=== PATIENT | female | born 2000 | race Hispanic/Latino ===

== ENCOUNTER 2018-01-04 12:03 | Emergency (ER) | payer BC ==
[2018-01-04 12:37] LABS: KETONE, URINE AUTO RFX NEGATIVE (NEGATIVE); LEUKOCYTE ESTERASE UR AUTO RFX NEGATIVE (NEGATIVE); MUCUS, URINE RFX SMALL (NEGATIVE); NITRITE, URINE AUTO RFX NEGATIVE (NEGATIVE); RBC, URINE AUTO RFX 0 /HPF (0-3); SPECIFIC GRAVITY UR AUTO RFX 1.015 (1.002-1.035); SQUAM EPITHELIAL CELL UR AURFX 0 /HPF (0-6); WBC, URINE AUTO RFX 0 /HPF (0-3)
[2018-01-04 14:20] LABS: BASO # 0.1 10^3/uL (0.0-0.2); BASO % 0.7 % (0.0-1.0); EOS # 0.2 10^3/uL (0.0-0.50); EOS % 1.6 % (0.0-3.0); HEMATOCRIT 42.6 % (36.0-47.0); HEMOGLOBIN 13.7 g/dl (12.0-15.5); IMMATURE GRANULOCYTE % 0.1 % (0-3.0); LYMPH # 2.5 10^3/uL (1.5-6.5); LYMPH % 25.4 % (24.0-44.0); MEAN CORPUSCULAR HEMOGLOBIN 26.1 pg (27.0-33.0); MEAN CORPUSCULAR HGB CONC 32.2 g/dl (32.0-36.5); MEAN CORPUSCULAR VOLUME 81.3 fl (80.0-96.0); MONO % 10.6 % (0.0-5.0); NEUTROPHILS % 61.6 % (36.0-66.0); PLATELET COUNT, AUTOMATED 371 10^3/uL (150-450); RED BLOOD COUNT 5.24 10^6/uL (4.00-5.40); RED CELL DISTRIBUTION WIDTH 13.8 % (11.5-14.5); WHITE BLOOD COUNT 9.8 10^3/uL (4.0-10.0)
[2018-01-04 14:41] LABS: ANION GAP 7 MEQ/L (8-16); BLOOD UREA NITROGEN 9 MG/DL (7-18); CALCIUM LEVEL 8.9 MG/DL (8.5-10.1); CARBON DIOXIDE LEVEL 24 MEQ/L (21-32); CHLORIDE LEVEL 107 MEQ/L (98-107); CREATININE FOR GFR 0.66 MG/DL (0.55-1.30); GLUCOSE, FASTING 90 MG/DL (70-100); HCG, SERUM QUANTITATIVE 116 MIU/ML; POTASSIUM SERUM 4.5 MEQ/L (3.5-5.1); SODIUM LEVEL 138 MEQ/L (136-145)
== END 2018-01-04 16:27 | disposition home or self-care (01) ==
LOC: M ED 12:03
DX: O26.891 Other specified pregnancy related conditions, first trimester (principal); R10.2 Pelvic and perineal pain; Z3A.01 Less than 8 weeks gestation of pregnancy; Z79.899 Other long term (current) drug therapy
CPT/HCPCS: 76801

== ENCOUNTER 2018-03-31 12:32 | Emergency (ER) | payer BC, OTHER ==
[2018-03-31] MEDS: NS 1,000 ML IV (14:19)
[2018-03-31] MEDS: ONDANSETRON 4MG/2ML VIAL (J2405) IV (14:19)
[2018-03-31 14:29] LABS: KETONE, URINE AUTO RFX NEGATIVE (NEGATIVE); MUCUS, URINE RFX LARGE (NEGATIVE); NITRITE, URINE AUTO RFX NEGATIVE (NEGATIVE); RBC, URINE AUTO RFX 3 /HPF (0-3); SPECIFIC GRAVITY UR AUTO RFX 1.024 (1.002-1.035); SQUAM EPITHELIAL CELL UR AURFX 20 /HPF (0-6); WBC, URINE AUTO RFX 6 /HPF (0-3)
[2018-03-31 14:34] LABS: LEUKOCYTE ESTERASE UR AUTO RFX TRACE (NEGATIVE)
== END 2018-03-31 16:07 | disposition home or self-care (01) ==
LOC: M ED 12:32
DX: O99.89 Other specified diseases and conditions complicating pregnancy, childbirth and the puerperium (principal); R11.2 Nausea with vomiting, unspecified; R82.71 Bacteriuria; R19.7 Diarrhea, unspecified; O99.342 Other mental disorders complicating pregnancy, second trimester; F32.9 Major depressive disorder, single episode, unspecified; Z87.891 Personal history of nicotine dependence; Z3A.16 16 weeks gestation of pregnancy
CPT/HCPCS: J2405

== ENCOUNTER → 2018-04-05 | Outpatient (CLI) | payer BC | LOC: M SMT 13:20 | DX: Z13.79 Encounter for other screening for genetic and chromosomal anomalies (principal) | CPT/HCPCS: 36415 ==

== ENCOUNTER → 2018-04-28 | Outpatient (CLI) | payer OTHER, BC | LOC: M RAD 15:36 | DX: Z34.81 Encounter for supervision of other normal pregnancy, first trimester (principal) | CPT/HCPCS: 76811 ==

== ENCOUNTER → 2018-05-23 | Outpatient (CLI) | payer OTHER | LOC: M RAD 16:58 | DX: Z34.82 Encounter for supervision of other normal pregnancy, second trimester (principal) ==

== ENCOUNTER → 2018-06-13 | Outpatient (CLI) | payer OTHER ==
[2018-06-13 13:25] LABS: BASO % 0.4 % (0.0-1.0); EOS # 0.1 10^3/uL (0.0-0.50); EOS % 1.4 % (0.0-3.0); HEMATOCRIT 33.1 % (36.0-47.0); HEMOGLOBIN 10.5 g/dl (12.0-15.5); LYMPH # 1.5 10^3/uL (1.5-6.5); LYMPH % 17.9 % (24.0-44.0); MEAN CORPUSCULAR HEMOGLOBIN 27.1 pg (27.0-33.0); MEAN CORPUSCULAR HGB CONC 31.7 g/dl (32.0-36.5); MEAN CORPUSCULAR VOLUME 85.3 fl (80.0-96.0); MONO # 0.6 10^3/uL (0.0-0.8); MONO % 7.2 % (0.0-5.0); NEUTROPHILS # 5.8 10^3/uL (1.8-7.7); NEUTROPHILS % 72.1 % (36.0-66.0); PLATELET COUNT, AUTOMATED 281 10^3/uL (150-450); RED BLOOD COUNT 3.88 10^6/uL (4.00-5.40); RED CELL DISTRIBUTION WIDTH 14.5 % (11.5-14.5); WHITE BLOOD COUNT 8.1 10^3/uL (4.0-10.0)
[2018-06-13 14:10] LABS: GLUCOSE CHALLENGE TEST 1 HOUR 106 MG/DL (LESS THAN 140)
[2018-06-14 10:23] LABS: HEPATITIS C VIRUS ABY INDEX 0.1 INDEX (<0.8)
== END ==
LOC: M SMT 10:32
DX: Z36.89 Encounter for other specified antenatal screening (principal); Z3A.00 Weeks of gestation of pregnancy not specified
CPT/HCPCS: 82950

== ENCOUNTER → 2018-07-14 | Outpatient (CLI) | payer OTHER ==
[2018-07-14 15:26] LABS: ALBUMIN 2.5 GM/DL (3.2-5.2); ALBUMIN/GLOBULIN RATIO 0.64 (1.00-1.93); ALKALINE PHOSPHATASE 114 U/L (45-117); ALT/SGPT 19 U/L (12-78); AST/SGOT 18 U/L (7-37); BILIRUBIN,DIRECT < 0.1 MG/DL (0.0-0.2); BILIRUBIN,TOTAL 0.2 MG/DL (0.2-1.0); TOTAL PROTEIN 6.4 GM/DL (6.4-8.2)
[2018-07-17 14:12] LABS: BILE ACIDS FRACTIONATED 4.9 umol/L (4.7-24.5)
== END ==
LOC: M SMT 11:20
DX: Z34.03 Encounter for supervision of normal first pregnancy, third trimester (principal); Z3A.00 Weeks of gestation of pregnancy not specified
CPT/HCPCS: 80076

== ENCOUNTER 2018-08-14 15:37 | Emergency (ER) | payer OTHER ==
[2018-08-14 18:20] LABS: INFLUENZA A AMPLIFICATION NEGATIVE (NEGATIVE); INFLUENZA B AMPLIFICATION NEGATIVE (NEGATIVE); RSV AMPLIFICATION NEGATIVE (NEGATIVE)
[2018-08-14 19:07] LABS: APPEARANCE, URINE HAZY (CLEAR); BACTERIA, URINE AUTO 1+ (NEGATIVE); BILIRUBIN, URINE AUTO NEGATIVE (NEGATIVE); BLOOD, URINE BLOOD NEGATIVE (NEGATIVE); COLOR, URINE YELLOW (YELLOW); GLUCOSE, URINE (UA) AUTO NEGATIVE (NEGATIVE); KETONE, URINE AUTO NEGATIVE (NEGATIVE); LEUKOCYTE ESTERASE, URINE AUTO 1+ (NEGATIVE); MUCUS, URINE SMALL (NEGATIVE); NITRITE, URINE AUTO NEGATIVE (NEGATIVE); PROTEIN, URINE AUTO NEGATIVE (NEGATIVE); RBC, URINE AUTO 2 /HPF (0-3); SPECIFIC GRAVITY URINE AUTO 1.017 (1.002-1.035); SQUAMOUS EPITHELIAL CELL UR AU 2 /HPF (0-6); UROBILINOGEN, URINE AUTO 0.2 mg/dL (0.0-2.0); WBC, URINE AUTO 2 /HPF (0-3)
== END 2018-08-14 20:13 | disposition home or self-care (01) ==
LOC: M ED 15:37
DX: J06.9 Acute upper respiratory infection, unspecified (principal)
CPT/HCPCS: 81001

== ENCOUNTER → 2018-08-22 | Outpatient (REF) | payer OTHER | LOC: M LAB REF 17:05 | DX: Z34.83 Encounter for supervision of other normal pregnancy, third trimester (principal); Z36.85 Encounter for antenatal screening for Streptococcus B | CPT/HCPCS: 87186 ==

== ENCOUNTER 2018-09-06 16:58 | Inpatient (IN) | payer OTHER ==
[2018-09-06] MEDS: LR 1,000 ML IV (18:02)
[2018-09-06 18:24] LABS: HEMATOCRIT 31.1 % (36.0-47.0); HEMOGLOBIN 9.6 g/dl (12.0-15.5); MEAN CORPUSCULAR HEMOGLOBIN 24.7 pg (27.0-33.0); MEAN CORPUSCULAR HGB CONC 30.9 g/dl (32.0-36.5); MEAN CORPUSCULAR VOLUME 79.9 fl (80.0-96.0); PLATELET COUNT, AUTOMATED 241 10^3/uL (150-450); RED BLOOD COUNT 3.89 10^6/uL (4.00-5.40); RED CELL DISTRIBUTION WIDTH 16.8 % (11.5-14.5); WHITE BLOOD COUNT 7.4 10^3/uL (4.0-10.0)
[2018-09-06] MEDS: LACTATED RINGER'S 1000 ML IV (18:28)
[2018-09-06] MEDS: PENICILLIN G POTASSIUM IV 5 MU in D5W MINI-BAG PLUS 100 ML IV (18:33)
[2018-09-06] MEDS: PENICILLIN G POTASSIUM IV 2.5 MU in APPROPRIATE DILUENT 1 EA IV (22:02)
[2018-09-07] MEDS ORDERED: OXYTOCIN DRIP 30 UNITS in APPROPRIATE DILUENT 1 EA IV (01:15)
[2018-09-07] MEDS ORDERED: FENTANYL 2MCG/ML ROPIVACAINE 0.2% IN 0.9% NACL 100ML IVBAG As Ordered (01:39)
[2018-09-07] MEDS: LR 1,000 ML IV (02:02)
[2018-09-07] MEDS: PENICILLIN G POTASSIUM IV 2.5 MU in APPROPRIATE DILUENT 1 EA IV (02:30)
[2018-09-07] MEDS ORDERED: EPIDURAL COMMENT XX (03:00)
[2018-09-07] MEDS ORDERED: REFRIGERATOR IV KEYS XX (03:00)
[2018-09-07] MEDS ORDERED: NALOXONE INJ 0.4 MG/1 ML VIAL (J2310) IV (03:00)
[2018-09-07] MEDS ORDERED: diphenhydrAMINE INJ 50MG/ML VIAL (J1200) IV (03:00)
[2018-09-07] MEDS ORDERED: ePHEDrine SULFATE 25 MG/5 ML(5MG/ML) SYRINGE IV (03:00)
[2018-09-07] MEDS ORDERED: EPIDURAL/PCA KEYS XX (03:00)
[2018-09-07] MEDS ORDERED: LACTATED RINGER'S 1000 ML IV (03:00)
[2018-09-07] MEDS ORDERED: FENTANYL/ROPIVACAINE/NACL BAG 100 ML EPIDURAL (03:00)
[2018-09-07] MEDS ORDERED: ONDANSETRON 4MG/2ML VIAL (J2405) IV (03:00)
[2018-09-07] MEDS ORDERED: ACETAMINOPHEN 500 MG TAB PO (05:15)
[2018-09-07] MEDS ORDERED: ANUSOL HC CREAM 30GM TOP (05:15)
[2018-09-07] MEDS ORDERED: MEASLES,MUMPS,RUBELLA VACCINE INJ (MMR-II) (90707) SC (05:15)
[2018-09-07] MEDS ORDERED: DIBUCAINE 1% OINTMENT 30GM TOP (05:15)
[2018-09-07] MEDS: METHYLERGONOVINE MALEATE 0.2 MG TAB PO ×3 (05:15→17:15)
[2018-09-07] MEDS: miSOPROStol 200 MCG TAB (S0191) PR (05:15)
[2018-09-07] MEDS ORDERED: RHOGAM 300 MCG (1500 IU) INJ (J2790) IM (05:15)
[2018-09-07] MEDS ORDERED: DOCUSATE SODIUM 100 MG CAP PO (05:15)
[2018-09-07] MEDS ORDERED: MOM 30ML SUSPENSION UDC PO (05:15)
[2018-09-07] MEDS ORDERED: SLF 3 ML SYR IV (08:15)
[2018-09-07] MEDS: PRENATAL VITAMINS CHEWABLE TABLET PO (08:57)
[2018-09-07] MEDS: IBUPROFEN 800 MG TAB PO ×2 (09:54→18:11)
[2018-09-07] MEDS: SLF 3 ML SYR IV (22:00)
[2018-09-08] MEDS: METHYLERGONOVINE MALEATE 0.2 MG TAB PO ×2 (00:36→05:15)
[2018-09-08] MEDS: SLF 3 ML SYR IV ×2 (06:00→14:00)
[2018-09-08] MEDS: PRENATAL VITAMINS CHEWABLE TABLET PO (08:31)
[2018-09-08] MEDS: IBUPROFEN 800 MG TAB PO (08:31)
[2018-09-08] MEDS ORDERED: METHYLERGONOVINE MALEATE 0.2 MG TAB PO (10:45)
== END 2018-09-08 18:00 | disposition home or self-care (01) | DRG 807 ==
LOC: M LDO 16:58 → M OBS 09-07 10:05 → M LDI 17:15 → M OBS 09-07 12:40
PROVIDERS: Advanced Practice Midwife
PROC: 10E0XZZ Delivery of Products of Conception, External Approach (ICD-10-PCS; principal; 2018-09-07)
PROC: 0HQ9XZZ Repair Perineum Skin, External Approach (ICD-10-PCS; 2018-09-07)
DX: O70.0 First degree perineal laceration during delivery (principal); Z37.0 Single live birth; O99.820 Streptococcus B carrier state complicating pregnancy; Z3A.38 38 weeks gestation of pregnancy

== ENCOUNTER → 2019-08-09 | Outpatient (REF) | payer OTHER ==
[~2019-08-09] MED LIST: DICL10TA; IBUP-1114 PO; LEXA5TAB13 PO; LIDO1SOL8 PO; MACR100C43 PO; MAPA500T2 PO; METO10TA2; PRENTAB9 PO; VITATAB PO; ZOFR4TAB14 PO
[2019-08-10 12:47] LABS: MONO SCRN NEGATIVE (NEGATIVE)
== END ==
LOC: M LAB REF 12:34
PROVIDERS: ATTEND Internal Medicine
DX: R74.8 Abnormal levels of other serum enzymes (principal); R53.83 Other fatigue

== ENCOUNTER → 2019-10-03 | Outpatient (REF) | payer OTHER ==
[2019-10-03 12:54] LABS: HEMATOCRIT 42.3 % (36.0-47.0); HEMOGLOBIN 13.1 g/dl (12.0-15.5); MEAN CORPUSCULAR HEMOGLOBIN 25.4 pg (27.0-33.0); PLATELET COUNT, AUTOMATED 347 10^3/uL (150-450); RED BLOOD COUNT 5.16 10^6/uL (4.00-5.40); WHITE BLOOD COUNT 6.4 10^3/uL (4.0-10.0)
[2019-10-03 14:10] LABS: HIV 1&2 SCREEN CENTAUR NEGATIVE (NEGATIVE); RUBELLA IgG QUALITATIVE IMMUNE (IMMUNE)
== END ==
LOC: M LAB REF 12:17
PROVIDERS: ATTEND Obstetrics & Gynecology
DX: Z32.01 Encounter for pregnancy test, result positive (principal); O36.80X0 Pregnancy with inconclusive fetal viability, not applicable or unspecified; Z3A.00 Weeks of gestation of pregnancy not specified

== ENCOUNTER → 2019-10-05 | Outpatient (CLI) | payer OTHER ==
--- NOTE | 2019-10-05 09:05 | REP ---
OB ULTRASOUND: Real-time sonographic evaluation of the gravid uterus is performed. There is a single living intrauterine gestation. The estimated gestational age is 7 weeks 1 day based on a crown rump length of 10 mm. EDC 05/22/2020. heart rate is 146 beats per minute. There is no subchronic hemorrhage. No maternal adnexal region abnormality is seen. The ovaries appear normal. Unreviewed
== END ==
LOC: M RAD 08:22
PROVIDERS: ATTEND Obstetrics & Gynecology
DX: O36.80X0 Pregnancy with inconclusive fetal viability, not applicable or unspecified (principal); Z3A.01 Less than 8 weeks gestation of pregnancy

== ENCOUNTER → 2020-04-18 | Outpatient (CLI) | payer OTHER ==
[~2020-04-18] MED LIST changes: +BETAMETHASONE SOLUSPAN 6MG/ML 5ML VIAL (J0702 PER 3MG) As Ordered ONE; +BETAMETHASONE SOLUSPAN 6MG/ML 5ML VIAL (J0702 PER 3MG) ONE; +DIBU10OI TOP; +DOCU100C16 PO; +IBUP80TA PO; -LIDO1SOL8 PO; +LIDO2SOL17 PO; +TERBUTALINE SULFATE 1 MG/ML VIAL (J3105) As Ordered ONE; +TERBUTALINE SULFATE 1 MG/ML VIAL (J3105) ONE
[2020-06-17 09:17] LABS: CHLAMYDIA DNA AMPLIFICATION NEGATIVE (NEGATIVE); GC DNA AMPLIFICATION NEGATIVE (NEGATIVE)
[2020-07-02 09:14] LABS: APPEARANCE, URINE CLOUDY (CLEAR); BACTERIA, URINE AUTO 1+ (NEGATIVE); BILIRUBIN, URINE AUTO NEGATIVE (NEGATIVE); BLOOD, URINE BLOOD 2+ (NEGATIVE); COLOR, URINE YELLOW (YELLOW); GLUCOSE, URINE (UA) AUTO NEGATIVE (NEGATIVE); KETONE, URINE AUTO NEGATIVE (NEGATIVE); LEUKOCYTE ESTERASE, URINE AUTO 3+ (NEGATIVE); MUCUS, URINE SMALL (NEGATIVE); NITRITE, URINE AUTO NEGATIVE (NEGATIVE); PROTEIN, URINE AUTO NEGATIVE (NEGATIVE); RBC, URINE AUTO 57 /HPF (0-3); SPECIFIC GRAVITY URINE AUTO 1.015 (1.002-1.035); SQUAMOUS EPITHELIAL CELL UR AU 1 /HPF (0-6); UROBILINOGEN, URINE AUTO 0.2 mg/dL (0.0-2.0); WBC, URINE AUTO TNTC /HPF (0-3)
== END ==
LOC: M LDO 15:09
PROVIDERS: ATTEND Obstetrics & Gynecology
DX: O47.03 False labor before 37 completed weeks of gestation, third trimester (principal); Z3A.35 35 weeks gestation of pregnancy
CPT/HCPCS: 59025; 81001; 87081; 87491; 87591; 96372; G0378; G0463; J0702; J3105

== ENCOUNTER → 2020-04-19 | Outpatient (CLI) | payer OTHER ==
[~2020-04-19] MED LIST changes: -BETAMETHASONE SOLUSPAN 6MG/ML 5ML VIAL (J0702 PER 3MG) As Ordered ONE; -BETAMETHASONE SOLUSPAN 6MG/ML 5ML VIAL (J0702 PER 3MG) ONE; -TERBUTALINE SULFATE 1 MG/ML VIAL (J3105) As Ordered ONE; -TERBUTALINE SULFATE 1 MG/ML VIAL (J3105) ONE
== END ==
LOC: M LDO 12:07
PROVIDERS: ATTEND Obstetrics & Gynecology
DX: O47.03 False labor before 37 completed weeks of gestation, third trimester (principal); Z3A.35 35 weeks gestation of pregnancy
CPT/HCPCS: 59025; 96372; G0378; G0463

== ENCOUNTER → 2020-04-20 | Outpatient (CLI) | payer OTHER ==
[~2020-04-20] MED LIST changes: +LIDOCAINE 5% (LIDODERM) PATCH ONE
== END ==
LOC: M LDO 22:15
PROVIDERS: ATTEND Obstetrics & Gynecology
DX: O99.89 Other specified diseases and conditions complicating pregnancy, childbirth and the puerperium (principal); S39.011A Strain of muscle, fascia and tendon of abdomen, initial encounter; X50.1XXA Overexertion from prolonged static or awkward postures, initial encounter; Y92.009 Unspecified place in unspecified non-institutional (private) residence as the place of occurrence of the external cause; Z3A.35 35 weeks gestation of pregnancy; O9A.213 Injury, poisoning and certain other consequences of external causes complicating pregnancy, third trimester
CPT/HCPCS: 59025; G0378; G0463

== ENCOUNTER → 2020-04-22 | Outpatient (CLI) | payer OTHER ==
[~2020-04-22] MED LIST changes: -LIDOCAINE 5% (LIDODERM) PATCH ONE
--- NOTE | 2020-06-23 15:10 | HPE ---
DATE OF ADMISSION: 04/22/2020 HISTORY OF PRESENT ILLNESS: A 19-year-old 2, para 1, last menstrual period (LMP) 07/29/2019, estimated date of confinement (EDC) 05/22/2020 at 35 and 5 weeks gestation. This is her fourth admission here to triage for pelvic pressure, pelvic pain, and pelvic girdle instability. No contractions. No vaginal bleeding and no discharge. PAST HISTORY: September 07, 2018 at 39 weeks spontaneous vaginal delivery 6 pounds with no issues. LABORATORY VALUES: O positive. HIV negative. Hep negative. RPR negative. Rubella immune. Varicella immune. Paps normal. Urine negative. Gonorrhea and chlamydia were negative. One hour glucose was 146. Her three hour glucose tolerance test (GTT) fasting 96, one hour 134, two hour 119, and three hour 134. She is hep C negative. VITAL SIGNS: Blood pressure 132/79, respirations 18, pulse 78, temperature 97.7. LABORATORY DATA: Urine is 1020, pH of 5, 2+ leukocytes, negative ketones, negative blood. PHYSICAL EXAMINATION: In no distress. Only when she moves, she has pain in her pelvic girdle. Symphysis-fundal height is 35. Nontender uterus. Cervix is posterior. External os is 4 cm. Internal os is 2 cm. Otherwise, it is thick and very posterior at -3 station. IMAGING: Ultrasound shows vertex presenting. Cardiac activity noted. REYNA in three quadrants. 10.20 cm. Smallest pocket was 3.1 cm. motion and tone were observed. ASSESSMENT AND PLAN: We explained to her that the issue is her pelvic girdle is unstable at this stage of her . We offered her a maternity built here, she said she has a maternity belt from [facility] and it digs into her abdomen, but she is willing to try the one we have here. She was discharged with discharged instructions. She has an appointment on with [facility]. She was discharge undelivered. All questions were answered. 40-minute discussion with non-stress test (NST), which was category 1 and at baseline was normal. No contractions were noted and ultrasound as mentioned above. MTDD
== END ==
LOC: M LDO 12:25
PROVIDERS: ATTEND Obstetrics & Gynecology
DX: O26.893 Other specified pregnancy related conditions, third trimester (principal); R10.9 Unspecified abdominal pain; Z3A.35 35 weeks gestation of pregnancy
CPT/HCPCS: 59025; 76815; G0378; G0463

== ENCOUNTER → 2020-04-27 | Outpatient (CLI) | payer OTHER | LOC: M LDO 12:33 | PROVIDERS: ATTEND Obstetrics & Gynecology | DX: O36.8130 Decreased fetal movements, third trimester, not applicable or unspecified (principal); Z3A.36 36 weeks gestation of pregnancy | CPT/HCPCS: 59025; G0378; G0463 ==

== ENCOUNTER → 2020-04-29 | Outpatient (CLI) | payer OTHER | LOC: M LDO 09:45 | PROVIDERS: ATTEND Registered Nurse Maternal Newborn | DX: Z79.899 Other long term (current) drug therapy (principal) ==

== ENCOUNTER → 2020-04-29 | Outpatient (CLI) | payer OTHER ==
[2020-06-19 09:46] LABS: APPEARANCE, URINE HAZY (CLEAR); BACTERIA, URINE AUTO NEGATIVE (NEGATIVE); BILIRUBIN, URINE AUTO NEGATIVE (NEGATIVE); BLOOD, URINE BLOOD NEGATIVE (NEGATIVE); COLOR, URINE YELLOW (YELLOW); GLUCOSE, URINE (UA) AUTO NEGATIVE (NEGATIVE); KETONE, URINE AUTO NEGATIVE (NEGATIVE); LEUKOCYTE ESTERASE, URINE AUTO 2+ (NEGATIVE); MUCUS, URINE SMALL (NEGATIVE); NITRITE, URINE AUTO NEGATIVE (NEGATIVE); PROTEIN, URINE AUTO NEGATIVE (NEGATIVE); RBC, URINE AUTO 1 /HPF (0-3); SPECIFIC GRAVITY URINE AUTO 1.009 (1.002-1.035); SQUAMOUS EPITHELIAL CELL UR AU 1 /HPF (0-6); UROBILINOGEN, URINE AUTO 0.2 mg/dL (0.0-2.0); WBC, URINE AUTO 19 /HPF (0-3)
== END ==
LOC: M LDO 09:45
PROVIDERS: ATTEND Registered Nurse Maternal Newborn
DX: O26.893 Other specified pregnancy related conditions, third trimester (principal); Z3A.36 36 weeks gestation of pregnancy
CPT/HCPCS: 59025; 81001; G0378; G0463

== ENCOUNTER 2020-05-08 09:04 | Inpatient (IN) | payer OTHER ==
[2020-05-08] VITALS (24 sets, daily range): BP systolic 102–154; BP diastolic 51–82
[~2020-05-08] VITALS: Ht 152.4 cm; Wt 77.9 kg
[~2020-05-08 09:04] MED LIST changes: -DIBU10OI TOP; -DOCU100C16 PO; -IBUP80TA PO
--- NOTE | 2020-05-08 13:32 | HPEPDOC ---
Obstetrical History & Physical General Date of Admission May 08, 2020 at 09:04 History of Present Illness 19-year-old 2, para 1 who presents at 38 weeks' by first trimester ultra sound with complaints of contractions. She presented to the [facility] clinic where she has been receiving her care found to be 6cm dilated Chief Complaint: Contractions, term Information Provided By: Patient Age: 19 : 2 Livin Dating Final EDC: May 22, 2020 Final EDC by: 1st trimester (US) Past Medical History Past Obstetrical History : Past Obstetrical History: Multigravida Type of Delivery: Spontaneous Vaginal Del. Sex of Infant: Female Complications: No ( labor and delivery) FINISHING MANAGER History: No pertinent history Past Medical History Surgical History: Denies/None Family History Significant Family History: No pertinent family hx Social History Marital Status: Family situation: Spouse/partner home Psychosocial History: No pertinent psych hx * Smoker: non-smoker Alcohol: Denies Drugs: denies Allergies Coded Allergies: No Known Allergies (Unverified , 01/04/18) Physical Examination Physical Examination GENERAL: Alert and oriented times three. BREAST: . ABDOMEN: Gravid and non-tender to touch. FETUS: Is vertex (VTX) by sterile vaginal examination (SVE), fetus is vertex (VTX) by Gurjit. HEART RATE: Regular rate and rhythm. LUNGS: Clear to auscultation (CTA). Laboratory Data [facility] Laboratory Tests 2 05/08/20 13:25: Serology Scanned Report Hepatitis B Testing Pertinent Laboratoy Data Blood Type: O+ RBC Antibody Screen: Negative HIV: Negative Hepatitis B: Negative Hepatitis C: Negative Rapid Plasma Reagin: Nonreactive Rubella: Immune Chlamydia/Gonorrhea: Negative Group B Streptococcus: Negative Vaginal Examination Dilation: 6 cm Effacement: 80% Station: -2 Presentation: Cephalic presentation Assessment Heart Rate (FHR): 140 Variability: Moderate Accelerations: Positive Decelerations: None Tocometer Frequency: regular, every 2-5 min. Assessment/Plan Assessment 19-year-old 2, para 1 at 38 weeks in active labor. Reassuring status Plan Admit and orient. Marble Installer and consent. Diet: Regular. Group B Streptococcus (GBS) negative. Labs and intravenous (IV) per unit protocol. Counseled on Pitocin and induction of labor (IOL). Anticipate normal spontaneous delivery (). C-S as appropriate. YARI LAM MD. May 08, 2020 13:32
[2020-05-08 15:06] LABS: HEMATOCRIT 31.5 % (36.0-47.0); HEMOGLOBIN 9.8 g/dl (12.0-15.5); MEAN CORPUSCULAR HEMOGLOBIN 25.3 pg (27.0-33.0); MEAN CORPUSCULAR HGB CONC 31.1 g/dl (32.0-36.5); MEAN CORPUSCULAR VOLUME 81.2 fl (80.0-96.0); PLATELET COUNT, AUTOMATED 271 10^3/uL (150-450); RED BLOOD COUNT 3.88 10^6/uL (4.00-5.40); WHITE BLOOD COUNT 7.9 10^3/uL (4.0-10.0)
[2020-05-08] MEDS ORDERED: LR 1,000 ML IV SCH (16:03)
[2020-05-08] MEDS ORDERED: OXYTOCIN DRIP 30 UNITS in IV 1 EA IV SCH ×3 (16:15→21:11)
[2020-05-08] MEDS ORDERED: FENTANYL 2MCG/ML ROPIVACAINE 0.2% IN 0.9% NACL 100ML IVBAG As Ordered ONE (19:31)
[2020-05-08] MEDS ORDERED: EPIDURAL/PCA KEYS XX PRN (20:00)
[2020-05-08] MEDS ORDERED: REFRIGERATOR IV KEYS XX PRN (20:00)
[2020-05-08] MEDS ORDERED: FENTANYL/ROPIVACAINE/NACL BAG 100 ML EPIDURAL SCH (20:00)
[2020-05-08] MEDS ORDERED: ONDANSETRON 4MG/2ML VIAL IV PRN (20:00)
[2020-05-08] MEDS ORDERED: diphenhydrAMINE 50MG/ML VIAL (J1200) IV PRN (20:00)
[2020-05-08] MEDS ORDERED: LACTATED RINGER'S 1000 ML IV PRN (20:00)
[2020-05-08] MEDS ORDERED: ePHEDrine SULFATE 25 MG/5 ML(5MG/ML) SYRINGE IV PRN (20:00)
[2020-05-08] MEDS ORDERED: EPIDURAL COMMENT XX SCH (20:00)
[2020-05-08] MEDS ORDERED: NALOXONE INJ 0.4MG/1ML VIAL (J2310 PER 1MG) IV PRN (20:00)
[2020-05-08] MEDS ORDERED: ACETAMINOPHEN TAB 650MG DOSE (2X325MG) PO PRN ×2 (21:00→21:15)
[2020-05-08] MEDS ORDERED: RHOGAM 300 MCG (1500 IU) INJ (J2790) IM SCH ×2 (21:00→21:15)
[2020-05-08] MEDS ORDERED: DIBUCAINE 1% OINTMENT 30GM TOP PRN ×2 (21:00→21:15)
[2020-05-08] MEDS ORDERED: MOM 30ML SUSPENSION UDC PO PRN (21:00)
[2020-05-08] MEDS ORDERED: ANUSOL HC CREAM 30GM TOP PRN ×2 (21:00→21:15)
[2020-05-08] MEDS ORDERED: IBUPROFEN 800 MG TAB PO PRN (21:00)
[2020-05-08] MEDS ORDERED: METHYLERGONOVINE MALEATE 0.2 MG TAB PO PRN ×2 (21:00→21:15)
[2020-05-08] MEDS ORDERED: MEASLES,MUMPS,RUBELLA VACCINE INJ (MMR-II) (90707) SC SCH ×2 (21:00→21:15)
[2020-05-08] MEDS ORDERED: DOCUSATE SODIUM 100 MG CAP PO PRN ×2 (21:00→21:15)
[2020-05-08] MEDS ORDERED: ACETAMINOPHEN 500 MG TAB PO PRN (21:00)
[2020-05-08] MEDS ORDERED: IBUPROFEN 600MG TAB PO PRN ×2 (21:00→21:15)
--- NOTE | 2020-05-08 21:37 | DNPDOC ---
[facility] Delivery Note Delivery Note DATE OF DELIVERY: 05/08/20 at 2036 PREDELIVERY DIAGNOSIS: 38-0/7 weeks' gestation and labor. POST DELIVERY DIAGNOSIS: Delivered. PROCEDURE: Spontaneous vaginal delivery. SWITCHBOARD WIRER: Ayan Storey CNM, MENDY ANESTHESIA: epidural. ESTIMATED BLOOD LOSS: 400 mL. FINDINGS: 6 pounds 13 ounce, 3100 grams; female infant, Score 9/9, meconium. DELIVERY SUMMARY: Patient is a 19-year-old female who is now a at 38 weeks gestation who presented to L&D in active labor. She progressed to fully dilated at 2030 and pushed to a vaginal delivery in the ZEESHAN position with restitution to LOT. The anterior shoulder delivered with ease and the corpus immediately followed. The baby was placed on the maternal abdomen active and crying with stimulation. The cord was clamped x2 and cut by the FOB. The placenta delivered spontaneously and intact at 2042. Uterine hemostasis was achieved via rapid infusion of IV Pitocin and fundal massage. The perineum, c ervix, and vagina was inspected and found to be intact. Mom plans to breast feed. They are naming her Sami. Both mom and baby are in stable condition. All counts of instruments and sponges are correct. AYAN STOREY CNM May 08, 2020 21:37
[2020-05-09] MEDS: ACETAMINOPHEN 500 MG TAB PO PRN ×3 (01:53→14:58)
[2020-05-09] MEDS: IBUPROFEN 800 MG TAB PO PRN ×2 (07:40→22:39)
[2020-05-09] MEDS: PRENATAL VITAMINS CHEWABLE TABLET PO SCH (07:41)
[2020-05-09] MEDS ORDERED: PRENATAL VITAMINS CHEWABLE TABLET PO SCH (09:00)
[2020-05-09 18:14] VITALS: BP 124/68
[2020-05-10] MEDS: ACETAMINOPHEN 500 MG TAB PO PRN ×2 (05:50→11:49)
[2020-05-10 06:00] VITALS: BP 92/41
[2020-05-10] MEDS ORDERED: DIBU10OI TOP (07:46)
[2020-05-10] MEDS ORDERED: IBUP80TA PO (07:46)
[2020-05-10] MEDS ORDERED: DOCU100C16 PO (07:46)
[2020-05-10] MEDS: PRENATAL VITAMINS CHEWABLE TABLET PO SCH (07:59)
[2020-05-10] MEDS: IBUPROFEN 800 MG TAB PO PRN (07:59)
--- NOTE | 2020-06-27 16:49 | DS ---
DATE OF ADMISSION: 05/08/2020 DATE OF DISCHARGE: 05/10/2020. BRIEF HISTORY: This lady is a 19-year-old, 2, who came in in spontaneous labor. She had epidural placed and spontaneous vaginal delivery of female ; 6 pounds 13 ounces, 3100 grams. Apgars of 9 and 9 at 1 and 5 minutes respectively. On discharge, her blood pressure was 92/41, respirations 16, pulse 65 and temperature 97.6. Hemoglobin 9.8, hematocrit 31.5 and platelets 271,000. We discussed phlebitis, cystitis, mastitis, metritis and cellulitis, diet, exercise, pain management, perineal, breast, and wound care. The rest of the examination is unremarkable. Normocephalic, atraumatic. Neck has full range of motion. Pupils equal and reactive to light. Distal pulses symmetric. No evidence of DVT, PE or superficial phlebitis. Chest is clear bilaterally to bases. No wheezes or rhonchi. No CVA tenderness. No rashes, lesions or pruritis. No arthralgias or myalgias. No complaint of joint pain. No complaint of cough, wheeze, shortness of breath or dyspnea on exertion. No nausea, vomiting, diarrhea or constipation. She is voiding well, has had a bowel movement. is going well. DISCHARGE MEDICATIONS: Dispensed at [facility]; to be picked up. FOLLOW-UP: She has a six-week check over at [facility]. Patient was discharged improved. All questions were answered; 20 minute discussion. ANGELI
--- NOTE | 2020-06-28 08:12 | IPN ---
DATE: 05/09/2020 day #1. This lady is a 19-year-old, 2, para 2, who was admitted in spontaneous labor. She had an epidural in place, spontaneous vaginal delivery of a female infant, 6 pounds 13 ounces, 3100 grams, scores of 9 and 9 at 1 and 5 minutes, respectively. She has a past history of delivery. She was admitted in active labor at 38 weeks of gestation. On her first day, we discussed phlebitis, cystitis, mastitis, endometritis, and cellulitis, diet, exercise, pain management, perineal, breast, and wound care. Her vital signs today: Blood pressure 116/69, respirations are not recorded, pulse is 82, and temperature is 98.0. Her admitting hemoglobin was 9.8, hematocrit 31.5, and platelets are 271. The rest of the examination is unremarkable. Normocephalic, atraumatic. Neck full range of motion. Pupils equal and reactive to light. Distal pulses are symmetric. No evidence of deep venous thrombosis (DVT), pulmonary embolus (PE), or superficial phlebitis. Chest is clear bilaterally to bases. No wheezes or rhonchi. No costovertebral angle (CVA) tenderness. Abdomen is soft, uterus two below. Lochia is moderate. Four quadrant bowel sounds are noted. The perineum is healing. Plans of management are discharge tomorrow, picker box operator medications at [facility], has a checkup at 6 weeks at [facility] (OB). All questions were answered. We await pack press operator appointment for the baby. ANGELI
== END 2020-05-10 13:18 | disposition home or self-care (01) | DRG 807 ==
LOC: M LDI 09:04 → M OBS 22:30
PROVIDERS: ADMIT Obstetrics & Gynecology; ATTEND Advanced Practice Midwife
PROC: 10E0XZZ Delivery of Products of Conception, External Approach (ICD-10-PCS; principal; 2020-05-08)
DX: O80 Encounter for full-term uncomplicated delivery (principal); Z37.0 Single live birth; Z3A.38 38 weeks gestation of pregnancy

== ENCOUNTER → 2020-05-11 | Outpatient (CLI) | payer OTHER ==
[~2020-05-11] MED LIST changes: +DIBU10OI TOP; +DOCU100C16 PO; +IBUP80TA PO; +LR 1,000 ML IV SCH
[2020-05-11 10:15] VITALS: BP 128/78
== END ==
LOC: M RROUT 09:23
PROVIDERS: ATTEND Anesthesiology
DX: O89.4 Spinal and epidural anesthesia-induced headache during the puerperium (principal)